=== PATIENT | female | born 1955 | race Caucasian/White ===

== ENCOUNTER 2016-08-10 17:38 | Emergency (ER) | payer MEDICARE, MEDICAID ==
[2016-08-10 17:59] VITALS: BP 131/69
--- NOTE | 2016-08-10 18:39 | UC ---
Lower Extremity/Ankle HPI - HPI Summary HPI Summary: burning pain right lower leg, swelling, redness. Feels like prior bouts of cellulitis. Leg was very swollen a few days ago when she was up on her feet all day getting tests done. Swelling improves when she sits and puts legs up. Burning pain over anterior [place], increased warmth. No drainage. No fever. Slight nausea. She has been on nearly constant antibiotics in past month due to sinusitis that won't clear. Seeing ENT, undergoing medical clearance for sinus surgery. She has severe COPD, no recent change in SOB. Chronic productive cough. - History of Current Complaint Chief Complaint: UCSkin Stated Complaint: SKIN COMPLAINT Time Seen by Provider: 08/10/16 18:18 Hx Obtained From: Patient Hx Last Menstrual Period: years ago Onset/Duration: Gradual Onset, Lasting Days - 5 Severity Initially: Mild Severity Currently: Moderate Aggravating Factor(s): Ambulation Alleviating Factor(s): Rest, Elevation Able to Bear Weight: Yes - Risk Factors Gout Risk Factors: Age Over 40, Diabetes, Hypertension, Hyperlipidemia, Obesity DVT Risk Factors: Smoking Septic Arthritis Risk Factor: Negative - Allergies/Home Medications Allergies/Adverse Reactions: Allergies Allergy/AdvReac Type Severity Reaction Status Date / Time Clindamycin Allergy Intermediate RASH,SOB Verified 08/10/16 17:49 Penicillins Allergy Intermediate Rash Verified 08/10/16 17:49 Home Medications: Home Medications Insulin LISPRO* [HumaLOG*] 10 - 26 unit SUBCUT QID ACHS 08/10/16 [History Confirmed 08/10/16] Multivitamins/Minerals TAB* [Thera M Plus TAB*] 1 tab PO DAILY 08/10/16 [ History Confirmed 08/10/16] metFORMIN* [Glucophage*] 1,000 mg PO BID 08/10/16 [History Confirmed 08/10/16] PMH/Surg Hx/FS Hx/Imm Hx Endocrine History Of: Reports: Diabetes Cardiovascular History Of: Reports: Hypertension Respiratory History Of: Reports: COPD - Surgical History Surgical History: Yes Surgery Procedure, Year, and Place: OVARIAN CYST ROMOVAL,TITANIUM PLATE LEFT FACE, LAP BAN,APPENDECTOMY, ORAL SURGERY - Family History Known Family History: Positive: Cardiac Disease, Hypertension, Diabetes - Social History Occupation: Disabled Alcohol Use: None Substance Use Type: Marijuana Smoking Status (MU): Heavy Every Day Tobacco Smoker Type: Cigarettes Amount Used/How Often: 1 PPD Length of Time of Smoking/Using Tobacco: On and Off for 45 Years Have You Smoked in the Last Year: Yes - Immunization History Most Recent Influenza Vaccination: Not the 2015/2016 Season Review of Systems Constitutional: Negative Skin: Other - redness right lower leg Eyes: Negative ENT: Negative Respiratory: Negative Cardiovascular: Negative Gastrointestinal: Negative Genitourinary: Negative Motor: Negative Neurovascular: Negative Musculoskeletal: Negative Neurological: Negative Psychological: Negative All Other Systems Reviewed And Are Negative: Yes Physical Exam Triage Information Reviewed: Yes Appearance: No Pain Distress, Ill-Appearing - chronic illness, SOB at rest, Obese Vital Signs: Initial Vital Signs Temp 99.1 F 08/10/16 17:47 Pulse 100 08/10/16 17:47 Resp 24 08/10/16 17:47 BP 131/69 08/10/16 17:47 Pulse Ox 95 08/10/16 17:47 Vital Signs Reviewed: Yes Eye Exam: Normal ENT Exam: Normal Neck exam: Normal Respiratory Exam: Normal Respiratory: Positive: Lungs clear Cardiovascular Exam: Normal Musculoskeletal Exam: Normal Neurological Exam: Normal Psychological Exam: Normal Skin Exam: Other - redness and increased warmth anterior right lower leg over [place]. No skin breakdown. Swelling to knee. No palpable cords. Neg Marlyn's sign Lower Extremity Course/Dx - Course Course Of Treatment: We will treat for cellulitis. If she is not better in 2d, she will return for re-eval and possible LE ultrasound - Differential Dx/Diagnosis Differential Diagnosis/HQI/PQRI: Cellulitis, Infection, Osteomyelitis Provider Diagnoses: leg cellulitis Discharge - Discharge Plan Condition: Stable Disposition: HOME Prescriptions: Cephalexin CAP* [Keflex CAP*] 500 mg PO TID #30 cap Patient Education Materials: Cellulitis (ED) Referrals: Lamonte Manley MD [Primary Care Provider] - Additional Instructions: If you are not improving by Monday, particularly if the swelling is worse, return here for a re-evaluation or see your primary care doctor
== END 2016-08-10 18:43 | disposition home or self-care (01) ==
LOC: UCCORT 17:38
DX: L03.115 Cellulitis of right lower limb (principal); J44.9 Chronic obstructive pulmonary disease, unspecified; I10 Essential (primary) hypertension; E11.9 Type 2 diabetes mellitus without complications; F17.210 Nicotine dependence, cigarettes, uncomplicated; Z88.0 Allergy status to penicillin; Z88.3 Allergy status to other anti-infective agents
CPT/HCPCS: 99202; G0463